=== PATIENT | female | born 1990 ===

== ENCOUNTER 2025-05-27 18:01 | Outpatient (REF) | payer MEDICAID, SELFPAY ==
[2025-05-29 17:03] LABS: C. trachomatis RNA TMA NOT DETECTED (NOT DETECTED); N. gonorrhoeae RNA TMA NOT DETECTED (NOT DETECTED)
[2025-05-30 02:48] LABS: Trichomonas (NAAT) NOT DETECTED (NOT DETECTED)
== END 2025-05-27 18:02 | disposition home or self-care (01) ==
LOC: HO.CHCLNP 18:01
PROVIDERS: Visit Provider Family Medicine
DX: Z12.4 Encounter for screening for malignant neoplasm of cervix (principal)
CPT/HCPCS: 87491; 87591; 87626; 87661; 88175

== ENCOUNTER 2025-06-11 09:09 | Outpatient (REF) | payer MEDICAID, SELFPAY ==
--- OUTSIDE RECORDS SUMMARY | 2025-06-11 09:26 | XMS_ITS | Clinical Summary ---
Author Organization [employer] Address [address] [place] [address] Care Team Providers Care Horse Shoer Name Role Phone Alla Knight MD Primary Care Provider [phone] Allergies No known active allergies Medications clonazePAM (KlonoPIN) 0.5 MG tablet Take 0.5 mg by mouth 2 times daily. Active metroNIDAZOLE (Flagyl) 500 MG tablet Take 1 tablet (500 mg) by mouth 2 times daily for 7 days. 14 tablet 06/03/2025 Active Problems Problem Noted Date Diagnosed Date Class 1 obesity 05/27/2025 Abnormal uterine bleeding 05/27/2025 Assessment & Plan (05/27/2025 11:33 AM EDT): Lab testing sent, f/up results Cervical cancer screening 05/27/2025 Assessment & Plan (05/27/2025 11:33 AM EDT): 35 y.o. here for cervical cancer screening. Will continue monitoring following ASCCP guidelines. Pain of both breasts 05/27/2025 Assessment & Plan (05/27/2025 11:33 AM EDT): Likely fibrocytic breast, given persistent pain and following CRICO guidelines will send for diagnostic mammo, f/up with results Encounters Date Type Department Care Team Description 06/03/2025 Results Follow-Up [facility] MED & PEDS [address] [place] [address] Colleen Roth MD STI testing add on (NG, CT, Trich), Pap Smear, HPV High Risk with Reflex to Subtypes 05/27/2025 10:20 AM EDT Procedure Visit [facility] MED & PEDS [address] [place] [address] Colleen Roth MD Cervical cancer screening (Primary Dx); Abnormal uterine bleeding; Class 1 obesity; Pain of both breasts; Screening examination for STD (sexually transmitted disease) 05/27/2025 Travel 05/21/2025 9:00 AM EDT Office Visit [facility] MED & PEDS [address] [place] [address] Alla Knight MD Depression, unspecified depression type (Primary Dx); Anxiety 05/21/2025 Travel 05/14/2025 Patient Outreach [facility] MEDICINE [address] [place] [address] Benito Campa Care Coordination ([facility] outreach for [facility] housing search-referral completed ) 05/14/2025 Patient Outreach [facility] MEDICINE [address] [place] [address] Ben Sheth MD Pre-visit Planning (SDOH screening positive and Tobacco screening positive) from Last 3 Months Family History Medical History Relation Name Comments Anxiety disorder Brother Depression Brother Heart disease Father Heart disease Mother Relation Name Status Comments Brother Alive Father Alive Mother Alive Social History Tobacco Use Types Packs/Day Years Used Date Smoking Tobacco: Every Day Cigarettes Passive Smoke Exposure: Current Smokeless Tobacco: Never Tobacco Cessation:Ready to Q uit: No; Counseling Given: Yes Alcohol Use Standard Drinks/Week Comments Yes 0 (1 standard drink = 0.6 oz pur e alcohol) Social Depression Answer Date Recorded Patient Health Questionnaire-9 Score 22 05/21/2025 Patient Health Questionnaire-9 Score 22 05/21/2025 Last PHQ-9: Questionnaire Data Not on file 0 05/21/2025 Housing Stability Answer Date Recorded What is your housing situation today? I do not have housing (Staying with others, in a hotel, in a custodial, living outside on the street, on a beach, in a car, or in a park 05/14/[address] you li ve. Do you have problems with any of the following? None of the above 05/14/2025 Food Insecurity Answer Date Recorded Within the past 12 months, y ou worried that your food would run out before you got money to buy more: Never True 05/14/2025 Within the past 12 months,th e food you bought just didn't last and you didn't have enough money to get more: Never True Transportation Answer Date Recorded In the past 12 months, has l ack of transportation kept you from medical appts, meetings, work or from getting things needed for daily living? No 05/14/2025 Utilities Answer Date Recorded In the past 12 months, has t he electric, gas, oil or water company threatened to shut off services in your home? No 05/14/2025 Depression Answer Date Recorded Patient Health Questionnaire-2 Score 6 05/21/2025 Internet Access Answer Date Recorded Internet Access Q1 Yes 05/14/2025 Internet Access Q2 Not on file 05/14/2025 Comments Unknown Sex and Gender Information Value Date Recorded Sex Assigned at Female 05/19/2025 3:12 PM EDT Legal Sex Female 1:30 PM EDT Gender Identity Female 05/19/2025 3:12 PM EDT Sexual Orientation Straight 05/19/2025 3: 12 PM EDT Last Filed Vital Signs Vital Sign Reading Time Taken Comments Blood Pressure 98/62 05/27/2025 10:19 AM EDT Pulse 92 05/27/2025 10:19 AM EDT Temperature 36.6 C (97.8 F) 05/27/2025 10:19 AM EDT Respiratory Rate 20 05/27/2025 10:19 AM EDT Oxygen Saturation 98% 05/21/2025 8:53 AM EDT Inhaled Oxygen Concentration - - Weight 75.3 kg (166 lb) 05/27/2025 10:19 AM EDT Height 154.9 cm (5' 1 ) 05/27/2025 10:19 AM EDT Body Mass Index 31.37 05/27/2025 10:19 AM EDT Plan of Treatment Upcoming Encounters Date Type Department Care Team ([facility] st Contact Info) Description 06/18/2025 8:45 AM EDT Telemedicine [facility] MED & PEDS [address] [place] [address] Alla Knight MD [address] [place] [address] Health Maintenance Due Date Last Done Comments HIV Screening 1990 Lipid Panel 1989 Disability Screening 1989 Alcohol/Substance Use Screening 2001 Family Planning (PISQ) 2004 HPV Vaccines (1 - 3-dose series) 2004 Hepatitis C Screening 2007 DTaP/Tdap/Td Vaccines (1 - Tdap) 2008 Hepatitis B Vaccines (1 of 3 - 19+ 3-dose series) 2008 Pneumococcal Vaccine: Pediatrics (0 to 5 Years) and At-Risk Patients (6 to 49) Years (1 of 2 - PCV) 2008 COVID-19 Vaccine ( - 2023-2 5 season) 2024 Influenza Vaccine (#1) 2025 Depression Monitoring 11/20/2025 05/21/2025 , 05/21/2025 SDOH Screening 05/14/2026 05/14/2025 Tobacco Screening 05/27/2026 05/27/2025 Pap Smear 05/27/2028 05/27/2025 Cervical Cancer Screening 05/27/2030 HPV/Cotest 05/27/2030 05/27/2025 Zoster Vaccines (1 of 2) 2039 RSV Patients and Patients Aged 60 years or older (1 - 1-dose 75+ series) 2064 HIB Vaccines Aged Out No longer eligi ble based on patient's age to complete this topic Hepatitis A Vaccines Aged Out No long er eligible based on patient's age to complete this topic IPV Vaccines Aged Out No longer eligi ble based on patient's age to complete this topic Meningococcal B Vaccine Aged Out No l onger eligible based on patient's age to complete this topic Meningococcal Vaccine Aged Out No marty orly eligible based on patient's age to complete this topic RSV under 20 months Aged Out No longe r eligible based on patient's age to complete this topic Rotavirus Vaccines Aged Out No longer eligible based on patient's age to complete this topic Procedures Procedure Name Priority Date/Time Associated Diagnosis Comments PAP SMEAR Routine 05/27/2025 11:02 AM EDT Cervical cancer screening CHLAMYDIA/N. GONORRHOEAE AND T. VAGINALIS RNA, QUAL,TMA Routine 05/27/2025 11:02 AM EDT Cervical cancer screening HPV DNA, LOW/HIGH RISK Routine 05/27/2025 11:02 AM EDT Cervical cancer screening from Last 3 Months Results * STI testing add on (NG, CT, Trich) (05/27/2025 11:02 AM EDT) Trichomonas (NAAT) NOT DETECTED NOT DETECTED [facility] Comment:The analytical perfo rmance characteristics of thisassay have been determined by [employer]. Themodifications have not been cleared or approved bythe FDA. This assay has been validated pursuant to theCLIA regulations and is used for clinical purposes.For additional information, please refer tohttp://education.[employer]/faq/Trichomonastma(This link is being provided for information/educational purposes only.)THIS TEST WAS PERFORMED AT:[employer] [place] [phone] JARA MD CTNG Ref Lab NOT DETECTED NOT DETECTED [facility] NG Ref Lab NOT DETECTED NOT DETECTED [facility] ThinPrep vial Cervix uteri structure / Unknown 05/27/2025 11:02 AM EDT 05/28/2025 8:25 AM EDT Narrative [facility] - 05/30/2025 2:48 AM EDT Collection Date: [id number] by: KENNEY Crooks: Cervix us Colleen Roth MD LAB CYTOLOGY ORDERABLES Final Result [facility] [address] [place], [place] [phone] * HPV High Risk with Reflex to Subtypes (05/27/2025 11:02 AM EDT) HPV High Risk Negative Negative [facility] HPV Genotype 16 Negative Negative [facility] HPV Genotype 18 Negative Negative [facility] Comment:HPV testing performe d at [facility] (CLIA#[id number]), [address] [place] [phone].Testing for HPV was performed using the [employer] 6800system. The presence of HPV in the female genital tract isassociated with a number of diseases, including cervicalcarcinoma. The HPV DNA high risk pool tests for HPV 31, 33,35, 39, 45, 51, 52, 56, 58, 59, 66 and 68. The testing forHPV 16 and 18 genotypes has also been performed. A positiveresult indicates detection of nucleic acid sequences fromone or more subtypes, whereas a negative result indicatessuch sequences were not detected. Swab 05/27/2025 11:0 2 AM EDT 05/28/2025 8:25 AM EDT us Colleen Roth MD LAB BLOOD ORDERABLES Final Re sult [facility] [address] [place] [phone] * Pap Smear (05/27/2025 11:02 AM EDT) Swab 05/27/2025 11:0 2 AM EDT 05/28/2025 8:25 AM EDT Alexander [facility] - 06/02/2025 3:02 PM EDT ----- ------- Name: Chelsea Durand Age/Sex: 35/F : 1990 Unit#: [id number] Attend Dr: Colleen Roth MD Re05/27/25 Status: DEP REF Location: .CHCLNP Disch: ----- ------- SPEC : [id number] RECD: 05/28/25 STATUS: JENNIFER LUND NUM: [id number] JOSSIE: 05/27/[address] [facility] DR: Colleen Roth MD ENTERED: 05/28/25 SP TYPE: Pap Smr OT DR: ORDERED: Pap Smear Interpretation Satisfactory for evaluation. Negative for intraepithelial lesion or malignancy. Coccobacilli consistent with shift in vaginal lynda. Mild inflammation. HPV High Risk: Negative HPV Genotyping 16: Negative HPV Genotyping 18: Negative Clinical Information LMP: 03/27/2025 Previous PAP test: Unknown date/findings Material Received ThinPrep-Cervical PAP Disclaimer As of September 18, 2024, the technical services to include automated prescreening performed by the ThinPrep Imaging System, PAP screening and HPV testing will be performed at [facility] (CLIA #[id number]), [address] [place] [address]. Testing for HPV was performed using the [employer] 6800 system. The presence of HPV in the female genital tract is associated with a number of diseases, including cervical carcinoma. The HPV DNA high risk pool tests for HPV 31, 33, 35, 39, 45, 51, 52, 56, 58, 59, 66 and 68. The testing for HPV 16 and 18 genotypes has also been performed. A positive result indicates detection of nucleic acid sequences from one or more subtypes, whereas a negative result indicates such sequences were not detected. All professional services are performed by [facility] ([address] [place] [address], [place] [address]; ; CLIA #[id number]). The PAP Test is a screening procedure with the inherent possibility of both false negative and false positive results. Results should be interpreted in the context of historic and current clinical findings. Reliability of the PAP Test is enhanced by performing the test on a regular repetitive basis. CONTINUED ON NEXT PAGE ----- ------- Name: Chelsea Durand Age/Sex: 35/F : 1990 Unit#: [id number] Attend Dr: Colleen Roth MD Re05/27/25 Status: DEP REF Location: HO.CHCLNP Disch: ----- ------- SPEC : [id number] RECD: 05/28/25 STATUS: AMARAArely LUND NUM: [id number] JOSSIE: 05/27/25-1101 [facility] DR: Colleen Roth MD ENTERED: 05/28/25 SP TYPE: Rigoberto MONTEZ DR: ORDERED: Pap Smear ----- ------- Signed (signature on file) CHRISSIE Monzon ([facility]) 06/02/25 1500 ----- ------- END OF REPORT us Colleen Roth MD LAB CYTOLOGY ORDERABLES Final Result [facility] [address] [place] [phone] [phone] from Last 3 Months Insurance [employer] C3 Care Teams Horse Shoer Relationship Specialty Start Date End Date Alla Knight MD [address] [place] [address] PCP - General Family Medicine 05/21/25
[2025-06-11 10:11] LABS: MANUAL DIFF FLAG NO
[2025-06-11 10:31] LABS: Hematocrit 39.5 % (37.0-47.0); Hemoglobin 13.4 g/dl (12.0-16.0); Imm Gran Abs Auto 0.02 X10*3/uL (0.00-0.03); Imm Gran Pct Auto 0.3 % (0.0-0.4); Lymphocytes Absolute Auto 2.2 X10*3/uL (1.2-4.9); Mean Corpuscular HGB Conc 33.9 g/dl (31.0-35.0); Mean Corpuscular Hemoglobin 32.5 pg (27.0-33.0); Mean Corpuscular Volume 95.9 fL (80.0-98.0); NRBC Abs Auto 0.000 X10*3/uL (0.0-0.012); NRBC Pct Auto 0.0 /100WBC (0.0-0.2); Platelet Count 302 X10*3/uL (160-400); Red Blood Count 4.12 X10*6/uL (4.20-5.50); White Blood Count 6.0 X10*3/uL (4.8-10.8)
[2025-06-11 11:13] LABS: Alanine Aminotransferase 26 U/L (0-31); Albumin Level 4.5 g/dL (3.5-5.0); Alkaline Phosphatase 66 U/L (39-117); Anion Gap 11 (12-20); Aspartate Amino Transferase 25 U/L (5-31); Blood Urea Nitrogen 20 mg/dL (9-16); Calcium 8.8 mg/dL (8.4-10.2); Carbon Dioxide 25 mmol/L (22-29); Chloride 111 mmol/L (96-108); Cholesterol 200 mg/dL (<200); Estimated Glomerular Filt Rate > 60; HDL Cholesterol 45 mg/dL (>40); Potassium 3.8 mmol/L (3.3-5.1); Sodium 143 mmol/L (135-145); Total Protein 7.2 g/dL (6.5-8.0); Triglycerides 131 mg/dL (<150)
[2025-06-11 11:16] LABS: HIV Num 1 0.05 S/CO (0.00-0.99); ~HepC Num1 0.10 S/CO (0.00-0.79); ~Hepatitis C Antibody Nonreactive (Nonreactive)
[2025-06-12 05:18] LABS: Follicle Stimulating Hormone 82.5 mIU/mL
[2025-06-14 22:03] LABS: Anti-Mullerian Hormone-Female 0.00 ng/mL (0.18-5.68)
[2025-06-16 21:54] LABS: Immunoglobulin A 247 mg/dL (47-310)
[2025-06-19 00:54] LABS: Estradiol Ultra Sensitive 3 pg/mL
== END 2025-06-11 09:10 | disposition home or self-care (01) ==
LOC: HO.CHCLDS 09:09
PROVIDERS: PCP Student in an Organized Health Care Education/Training Program; Visit Provider Family Medicine
DX: Z11.4 Encounter for screening for human immunodeficiency virus [HIV] (principal); Z11.59 Encounter for screening for other viral diseases; Z11.3 Encounter for screening for infections with a predominantly sexual mode of transmission; E66.811 Obesity, class 1; N93.9 Abnormal uterine and vaginal bleeding, unspecified
CPT/HCPCS: 36415; 80053; 80061; 82166; 82670; 82784; 83001; 84146; 84443; 84702; 85025; 86364; 86592; 86803; 87389

== ENCOUNTER 2025-06-17 15:13 | Outpatient (REF) | payer MEDICAID, SELFPAY ==
--- NOTE | ~2025-06-17 | US_ITS ---
EXAMINATION: US PELVIS CLINICAL INFORMATION: Abnormal uterine bleeding COMPARISON: None available. TECHNIQUE: Ultrasound of the pelvis is performed using both transabdominal and transvaginal transducers along with Doppler. Transvaginal imaging is performed due to inadequate visualization transabdominally. FINDINGS: Uterus: The uterus is anteflexed and measures 6.6 x 6.5 x 2.5 cm. The double wall endometrial thickness is 2 mm. The uterus is smooth in contour and has normal myometrial echogenicity. No visible fibroid. Adnexa: Both ovaries are visualized. There is normal color flow to the adnexa. There is no ovarian torsion. There is no pelvic ascites or fluid collection. Right ovary measures 1.4 x 1.8 x 1.1 cm. Left ovary measures 1.4 x 1.7 x 1.3 cm. US/US pelvic and transvaginal IMPRESSION: Unremarkable pelvic ultrasound Electronically signed by: Pepito Valadez MD 06/17/2025 04:13 PM EDT
--- OUTSIDE RECORDS SUMMARY | 2025-06-17 16:13 | XMS_ITS | Encounter Summary ---
Author Organization [employer] Address [address] [place] [address] Care Team Providers Care Photographer Still Name Role Phone Alla Knight MD Primary Care Provider [phone] Encounter Details Date Type Department Care Team (Latest Contact Info) Description 06/17/2025 Travel Social History Tobacco Use Types Packs/Day Years Used Date Smoking Tobacco: Every Day Cigarettes Passive Smoke Exposure: Current Smokeless Tobacco: Never Alcohol Use Standard Drinks/Week Comments Yes 0 [...] with others, in a hotel, in a senior living, living outside on the street, on a [...] Orientation Straight 05/19/2025 3: 12 PM EDT documented as of this encounter Plan of Treatment Upcoming Encounters Date Type Department Care Team (Late st Contact Info) Description 06/18/2025 8:45 AM EDT Telemedicine [facility] MED & PEDS [address] [place] [address] Alla Knight MD [address] [place] [address] documented as of this encounter Visit Diagnoses Not on filedocumented in this encounter Additional Health Concerns Assessment Noted Time PHQ-9 Depression Total Score: 22 025 9:11 AM EDT documented as of this encounter Care Teams Photographer Still Relationship Specialty Start Date End Date Alla Knight MD [address] [place] [address] PCP - General Family Medicine 05/21/25 documented as of this encounter
== END 2025-06-17 15:14 | disposition home or self-care (01) ==
LOC: HO.US 15:13
PROVIDERS: PCP Student in an Organized Health Care Education/Training Program; Visit Provider Family Medicine
DX: N93.9 Abnormal uterine and vaginal bleeding, unspecified (principal)
CPT/HCPCS: 76830; 76856

== ENCOUNTER → 2025-06-17 15:14 | Outpatient (BNV) | payer MEDICAID, SELFPAY | PROVIDERS: PCP Student in an Organized Health Care Education/Training Program; Visit Provider Radiology Diagnostic Radiology | DX: N93.9 Abnormal uterine and vaginal bleeding, unspecified (principal) | CPT/HCPCS: 76830; 76856 ==

== ENCOUNTER 2025-06-20 09:14 | Outpatient (REF) | payer MEDICAID, SELFPAY ==
--- OUTSIDE RECORDS SUMMARY | 2025-06-20 09:30 | XMS_ITS | Encounter Summary ---
Author Organization [employer] Address [address] [place] [address] Care Team Providers Care Surgical Scrub Tech Name Role Phone Alla Knight MD Primary Care Provider [phone] Encounter Details Date Type Department Care Team [...] with others, in a hotel, in a alf, living outside on the street, on a [...] Care Team (Late st Contact Info) Description 06/26/2025 10:00 AM EDT Office Visit [facility] MEDICINE [address] [place] [address] La Walton CNM [address] [place] [address] 07/23/2025 8:45 AM EDT Telemedicine [facility] MED & PEDS [address] [place] [address] Alla Knight MD [address] [place] [address] documented as of this encounter Visit Diagnoses Not on filedocumented in this encounter Additional Health Concerns Assessment Noted Time PHQ-9 Depression Total Score: 22 025 9:11 AM EDT documented as of this encounter Care Teams Surgical Scrub Tech Relationship Specialty Start Date End Date Alla Knight MD [address] [place] [address] PCP - General Family Medicine 05/21/25 documented as of this encounter
[2025-06-21 08:28] LABS: Follicle Stimulating Hormone 78.8 mIU/mL
[2025-06-26 11:04] LABS: Testosterone, Free 3.8 pg/mL (0.1-6.4)
[2025-06-30 05:13] LABS: Estradiol Ultra Sensitive 6 pg/mL
== END 2025-06-20 09:15 | disposition home or self-care (01) ==
LOC: HO.CHCLDS 09:14
PROVIDERS: Visit Provider Family Medicine
DX: N93.9 Abnormal uterine and vaginal bleeding, unspecified (principal)
CPT/HCPCS: 36415; 82670; 83001; 83002; 84402; 84403

== ENCOUNTER 2025-07-02 11:04 | Outpatient (REF) | payer MEDICAID, SELFPAY | END 2025-07-02 11:05 | disposition home or self-care (01) | LOC: HO.HHCL 11:04 | PROVIDERS: PCP Student in an Organized Health Care Education/Training Program; Visit Provider Advanced Practice Midwife | DX: E28.39 Other primary ovarian failure (principal) | CPT/HCPCS: 36415; 84702 ==

== ENCOUNTER 2025-07-31 12:19 | Outpatient (REF) | payer MEDICAID, SELFPAY ==
--- NOTE | ~2025-07-31 | MM_ITS ---
EXAMINATION: MM DIAGNOSTIC DIGITAL BREAST TOMOSYNTHESIS, BILATERAL Bilateral Limited breast ultrasound. CLINICAL INFORMATION: Bilateral breast pain. COMPARISON: Mammography: Baseline. TECHNIQUE: Digital breast mammography with tomosynthesis is performed in both the craniocaudal and mediolateral oblique views along with computer-aided detection (CAD). FINDINGS: There are scattered areas of fibroglandular density (ACR BI-RADS breast composition Category b). Left: Focal asymmetry upper outer breast posterior depth. Focal asymmetry upper outer breast middle depth. No suspicious calcifications or other abnormal findings. Targeted color Doppler ultrasound demonstrates a hypoechoic oval circumscribed solid mass at 10:00 11 cm from the nipple measuring 7 x 10 x 3 mm not identified correlate for the focal asymmetry in the upper central breast posterior depth. Targeted color Doppler ultrasound otherwise scanning from 10 2:00 demonstrates normal fibroglandular breast tissue. There is no other sonographic correlate. Right: Circumscribed oval mass central outer breast middle to posterior depth. No suspicious calcifications or other abnormal findings. Targeted color Doppler ultrasound demonstrates a simple cyst at 9:00 8 cm from the nipple measuring 4 x 4 x 3 mm which correlates with the circumscribed oval mass in the central outer breast on mammography. Results are provided to the patient at time of visit by the technologist. MM/MM tomosynthesis diagnostic BI IMPRESSION: Left: Focal asymmetry in the upper central breast posterior depth and upper central breast middle depth without definite sonographic correlates. Recommend six-month follow-up mammography for further evaluation of stability. Hypoechoic circumscribed oval mass at 10:00 11 cm from the nipple. Recommend 6 month follow-up ultrasound for further evaluation of stability. Right: Simple cyst on ultrasound. Benign. ASSESSMENT: BI-RADS BI-RADS 3 - Probably benign finding(s) - 6 month follow-up suggested RECOMMENDATION: 6 Month F/U mammogram and ultrasound of the left breast This patient's information was entered into a reminder system with a target due date for their next mammogram. Electronically signed by: Ashanti Yousif DO 07/31/2025 02:38 PM EDT
--- OUTSIDE RECORDS SUMMARY | 2025-07-31 13:43 | XMS_ITS | Encounter Summary ---
Author Organization [employer] Address [address] [place] [address] Care Team Providers Care Estimator Project Manager Name Role Phone Alla Knight MD Primary Care Provider [phone] Encounter Details Date Type Department Care Team (Latest Contact Info) Description 07/02/2025 Results Follow-Up [facility] MEDICINE [address] [place] [address] La Walton CNM [address] [place] [address] hCG, Total, Quantitative Social History Tobacco Use Types Packs/Day Years Used Date Smoking Tobacco: Every Day Cigarettes Passive Smoke Exposure: Current Smokeless Tobacco: Never Alcohol Use Standard Drinks/Week Comments Yes 0 (1 standard drink = 0.6 oz pur e alcohol) Social Alcohol Answer Date Recorded How often do you have a drink containing alcohol ? 3 07/02/2025 How many drinks containing a lcohol do you have on a typical day when you are drinking? 0 07/02/2025 Frequency of Binge Drinking Not on file 04/2025 Depression Answer Date Recorded Patient Health Questionnaire-9 Score 22 05/21/2025 Patient Health Questionnaire-9 Score 22 05/21/2025 Last PHQ-9: Questionnaire Data Not on file 0 05/21/2025 Housing Stability Answer Date Recorded What is your housing situation today? I do not have housing (Staying with others, in a hotel, in a fdc, living outside on the street, on a [...] Access Q2 Not on file 05/14/2025 Comments No Sex and Gender Information Value Date Recorded Sex Assigned at Female 05/19/2025 3:12 PM EDT Legal Sex Female 1:30 PM EDT Gender Identity Female 05/19/2025 3:12 PM EDT Sexual Orientation Straight 05/19/2025 3: 12 PM EDT documented as of this encounter Functional Status * Over the last 2 weeks, how often have you been bothered by any of the following problems? Question Answer Date of Assessment Author Feeling nervous, anxious, or on edge 3 07/02/2025 10:32 AM EDT Karon Izquierdo [place] Not being able to stop or co ntrol worrying 3 07/02/2025 10:32 AM EDT Karon Izquierdo MA Worrying too much about diff erent things 3 07/02/2025 10:32 AM EDT Karon Izquierdo MA Trouble relaxing 3 07/02/2025 10:32 AM EDT Karon Izquierdo MA Being so restless that it is hard to sit still 3 07/02/2025 10:32 AM EDT Karon Izquierdo MA Becoming easily annoyed or irritable 3 07/02/2025 10:32 AM EDT Karon Izquierdo MA Feeling afraid as if somethi ng awful might happen 2 07/02/2025 10:32 AM EDT Karon Izquierdo MA MARVIN-7 Total Score 20 07/02/2025 10:32 AM EDT Karon Izquierdo [place] documented as of this encounter Plan of Treatment Upcoming Encounters Date Type Department Care Team (Late st Contact Info) Description 09/04/2025 3:45 PM EDT Office Visit [facility] MEDICINE [address] [place] [address] La Walton CNM [address] [place] [address] documented as of this encounter Visit Diagnoses Not on filedocumented in this encounter Additional Health Concerns Assessment Noted Time PHQ-9 Depression Total Score: 22 025 9:11 AM EDT documented as of this encounter Care Teams Estimator Project Manager Relationship Specialty Start Date End Date Alla Knight MD [address] [place] [address] PCP - General Family Medicine 05/21/25 documented as of this encounter
--- OUTSIDE RECORDS SUMMARY | 2025-07-31 13:43 | XMS_ITS | Clinical Summary ---
Author Organization [employer] Address [address] [place] [address] Care Team Providers Care Retail Merchandiser Technician Name Role Phone Alla Knight MD Primary Care Provider [phone] Allergies No known active allergies Medications clonazePAM (KlonoPIN) 0.5 MG tablet Take 0.5 mg by mouth 2 times daily. Active sertraline (Zoloft) 25 MG tablet Take 2 tablets by mouth Once per day. 5 Active estradiol (Climara) 0.1 MG/24HR Place 1 patch on the skin 1 (one) time per week. 4 patch 2 5 Active progesterone (Prometrium) 200 MG capsule 1 tablet daily for 12 days, starting on the first of the month 30 capsule 2 5 Active FLUoxetine (PROzac) 10 MG tablet Take 1 tablet (10 mg) by mouth Once per day. 30 tablet 5 025 Discontinued omeprazole OTC (PriLOSEC OTC) 20 MG EC tablet Take 1 tablet (20 mg) by mouth before breakfast. Do not crush, chew, or split. 30 tablet 11 5 025 Discontinued Active Problems Problem Noted Date Diagnosed Date [...] Encounters Date Type Department Care Team Description 07/23/2025 Telephone [facility] [address] [place] [address] Alla Knight MD TC- telehealth appt 07/23/2025 Travel 07/22/2025 Telephone [facility] [address] [place] [address] Alla Knight MD 07/02/2025 10:00 AM EDT Office Visit [address] [address] La Walton CNM Primary ovarian insufficiency (Primary Dx); Irregular menses 07/02/2025 Results Follow-Up [address] [address] La Walton CNM hCG, Total, Quantitative 07/02/2025 Travel 07/01/[address] [address] La Walton CNM chart prep 06/25/[address] [address] La Walton CNM chart prep 06/25/2025 Travel 06/18/2025 8:45 AM EDT Telemedicine [facility] [address] [place] [address] Alla Knight MD Depression, unspecified depression type (Primary Dx); Anxiety 06/18/2025 Travel 06/17/2025 Travel 06/03/2025 Results Follow-Up [facility] [address] [place] [address] Colleen Roth MD STI testing add on (NG, CT, Trich), Pap Smear, HPV High Risk with Reflex to Subtypes, Additional followed-up results: 17 05/27/2025 10:20 AM EDT Procedure Visit [facility] [address] [place] [address] Colleen Roth MD Cervical cancer screening (Primary Dx); Abnormal uterine bleeding; Class 1 obesity; Pain of both breasts; Screening examination for STD (sexually transmitted disease) 05/27/2025 Travel 05/21/2025 9:00 AM EDT Office Visit [facility] [address] [place] [address] Alla Knight MD Depression, unspecified depression type (Primary Dx); Anxiety 05/21/2025 Travel 05/14/2025 Patient Outreach [facility] [address] [place] [phone] Benito Campa Care Coordination (CHW outreach for SDOH housing search-referral completed ) 05/14/2025 Patient Outreach [facility] [address] [place] [phone] Ben Sheth MD Pre-visit Planning (SDOH screening [...] Tobacco: Never Tobacco Cessation:Ready to Q uit: Not Asked; Counseling Given: Not Answered Alcohol Use Standard Drinks/Week Comments Yes 0 [...] Q2 Not on file 05/14/2025 Comments No Intention Date Recorded No desire to become (finding) 0 07/02/2025 Sex and Gender Information Value Date Recorded Sex Assigned at Female 05/19/2025 3:12 PM EDT Legal Sex Female 1:30 PM EDT Gender Identity Female 05/19/2025 3:12 PM EDT Sexual Orientation Straight 05/19/2025 3: 12 PM EDT Last Filed Vital Signs Vital Sign Reading Time Taken Comments Blood Pressure 120/74 07/02/2025 10:27 AM EDT Pulse 81 07/02/2025 10:27 AM EDT Temperature 36.6 C (97.9 F) 07/02/2025 10:27 AM EDT Respiratory Rate 14 07/02/2025 10:27 AM EDT Oxygen Saturation 99% 07/02/2025 10:27 AM EDT Inhaled Oxygen Concentration - - Weight 73.9 kg (163 lb) 07/02/2025 10:27 AM EDT Height 154.9 cm (5' 1 ) 05/27/2025 10:19 AM EDT Body Mass Index 30.8 05/27/2025 10:19 AM EDT Plan of Treatment Upcoming Encounters Date Type Department Care Team (Late st Contact Info) Description 09/04/2025 3:45 PM EDT Office Visit [facility] [address] [place] [address] DionytheronLa razo, CNM [address], [place] [phone] Health Maintenance Due Date Last Done Comments HPV Vaccines (1 - 3-dose series) 2004 DTaP/Tdap/Td Vaccines (1 - Tdap) 2008 Hepatitis B Vaccines (1 of 3 - 19+ 3-dose series) 2008 Pneumococcal Vaccine: Pediatrics (0 to 5 Years) and At-Risk Patients (6 to 49) Years (1 of 2 - PCV) 2008 COVID-19 Vaccine (2023-2 5 season) 2025 Influenza Vaccine (#1) 2025 Depression Monitoring 11/20/2025 05/21/2025 , 05/21/2025 SDOH Screening 05/14/2026 05/14/2025 Alcohol/Substance Use Screening 07/02/2026 07/02/2025 Disability Screening 07/02/2026 07/02/2025 Family Planning (PISQ) 07/02/2026 07/02/2025 Tobacco Screening 07/02/2026 07/02/2025 Cervical Cancer Screening 05/27/2030 HPV/Cotest 05/27/2030 05/27/2025 Pap Smear 05/27/2030 05/27/2025 Lipid Panel 06/11/2030 06/11/2025 Zoster Vaccines (1 of 2) 2039 RSV Patients and Patients Aged 60 years or older (1 - 1-dose 75+ series) 2064 HIV Screening Completed 06/11/2025 Hepatitis C Screening Completed 06/11/2025 HIB Vaccines Aged Out No longer eligi [...] Procedure Name Priority Date/Time Associated Diagnosis Comments HCG, TOTAL, QN Routine 07/02/2025 11:08 AM EDT Primary ovarian insufficiency POCT , URINE Routine 07/02/2025 10:59 AM EDT Irregular menses ESTRADIOL Routine 06/20/2025 9:20 AM EDT Abnormal uterine bleeding TESTOSTERONE, FREE (DIALYSIS) AND TOTAL,MS Routine 06/20/2025 9:20 AM EDT Abnormal uterine bleeding LH Routine 06/20/2025 9:20 AM EDT Abnormal uterine bleeding FSH Routine 06/20/2025 9:20 AM EDT Abnormal uterine bleeding US PELVIS TRANSVAGINAL Routine 06/17/2025 3:39 PM EDT Abnormal uterine bleeding CELIAC DISEASE COMPREHENSIVE PANEL Routine 06/11/2025 9:12 AM EDT Abnormal uterine bleeding TSH W/REFLEX TO FT4 Routine 06/11/2025 9 :12 AM EDT Abnormal uterine bleeding PROLACTIN Routine 06/11/2025 9:12 AM EDT Abnormal uterine bleeding HCG, TOTAL, QN Routine 06/11/2025 9:12 AM EDT Class 1 obesity RPR (MONITOR) W/REFL TITER Routine 06/11/2025 9:12 AM EDT Screening examination for STD (sexually transmitted disease) HEPATITIS C AB W/REFL TO HCV RNA, QN, PCR Routine 06/11/2025 9:12 AM EDT Screening examination for STD (sexually transmitted disease) HIV 1/2 ANTIGEN/ANTIBODY, FOURTH GENERATION W/RFL Routine 06/11/2025 9:12 AM EDT Screening examination for STD (sexually transmitted disease) ANTI-MULLERIAN HORMONE (AMH), FEMALE Routine 06/11/2025 9:12 AM EDT Abnormal uterine bleeding ESTRADIOL Routine 06/11/2025 9:12 AM EDT Abnormal uterine bleeding FSH Routine 06/11/2025 9:12 AM EDT Abnormal uterine bleeding COMPREHENSIVE METABOLIC PANEL Routine 06/11/2025 9:12 AM EDT Class 1 obesity CBC WITH AUTO DIFFERENTIAL Routine 06/11/2025 9:12 AM EDT Class 1 obesity LIPID PANEL, STANDARD Routine 06/11/2025 9:12 AM EDT Class 1 obesity PAP SMEAR Routine 05/27/2025 11:02 AM EDT Cervical cancer screening CHLAMYDIA/N. GONORRHOEAE AND T. VAGINALIS RNA, QUAL,TMA Routine 05/27/2025 11:02 AM EDT Cervical cancer screening HPV DNA, LOW/HIGH RISK Routine 05/27/2025 11:02 AM EDT Cervical cancer screening from Last 3 Months Results * hCG, Total, Quantitative (07/02/2025 11:08 AM EDT) Only the most recent of2 resultswithin the time period is included. HCG Quantitative 4 mIU/mL [facility] Comment:Weeks post LMP Appro ximate hCG(Last Menstrual Period) Range (mIU/ml)3 - 4 weeks 9 - 1304 - 5 weeks 75 - 2,6005 - 6 weeks 850 - 20,8006 - 7 weeks 4000 - 100,2007 - 12 weeks 11,500 - 289,11527 - 16 weeks 18,300 - 137,29115 - 29 weeks (2nd trimester) 1,400 - 53,11176 - 41 weeks (3rd trimester) 940 - 60,000The Paulino B- hCG assay is used for the early detection ofpregnancy; it cannot be used to diagnose any conditionunrelated to . If a B-hCG level is not supportedby the clinical evidence, results should be confirmed by analternative method (qualitative urine hCG, for example). Blood Venous blood specimen / Unknown 07/02/2025 11:08 AM EDT 07/02/2025 1:36 PM EDT [facility] BLOOD ORDERABLES Maria Fernanda l Result [facility] [address] [place] [address] [phone] * POCT Urine (07/02/2025 10:59 AM EDT) Preg Test, Ur Negative Negative, Indeterminate, None Detected, Invalid, Specimen unsatisfactory for evaluation, Weakly Positive, 2+ QC Media Lot # [id number] Lot# Expiration Date [id number] Urine 07/02/2025 10:5 9 AM EDT [facility] POINT OF CARE TEST ENTER/ EDIT ORDERABLES Final Result * Estradiol (06/20/2025 9:20 AM EDT) Only the most recent of2 resultswithin the time period is included. Estradiol Ultra Sensitive 6 pg/mL [facility] Comment:Female Reference Ran ges for Estradiol, Ultrasensitive (pg/mL): Follicular Phase: 39-375 Luteal Phase: 48-440 Postmenopausal Phase: < or = 10This test was developed and its analytical performancecharacteristics have been determined by [employer].It has not been cleared or approved by the FDA. This assayhas been validated pursuant to the CLIA regulations and isused for clinical purposes.THIS TEST WAS PERFORMED AT:[email or web address] [id number] [address] [place] [address]OHSZEANITHA MABRY MD,PHD,NIMCO Blood Venous blood specimen / Unknown 06/20/2025 9:20 AM EDT 06/20/2025 1:50 PM EDT us Colleen Roth MD LAB BLOOD ORDERABLES Final Re sult [facility] [address] [place] [phone] [phone] * Testosterone, Free (Dialysis) And Total, MS (06/20/2025 9:20 AM EDT) Testosterone, Total 23 2 - 45 ng/dL [facility] Comment:For additional infor matjolene, please refer tohttp://education.[employer]/faq/BmomaAchvlkkqwzkiZMQGBNQYV741(This link is being provided for informational/educational purposes only.)This test was developed and its analytical performancecharacteristics have been determined by [employer]. It hasnot been cleared or approved by the U.S. Food and DrugAdministration. This assay has been validated pursuantto the CLIA regulations and is used for clinicalpurposes. Testosterone, Free 3.8 0.1 - 6.4 pg/mL [facility] Comment:This test was develo ped and its analytical performancecharacteristics have been determined by [employer] [place]. It hasnot been cleared or approved by the U.S. Food and DrugAdministration. This assay has been validated pursuantto the CLIA regulations and is used for clinicalpurposes.THIS TEST WAS PERFORMED AT:[id number] [place] [address]YUYJODAJANAE LANIER MD,PHD Blood Venous blood specimen / Unknown 06/20/2025 9:20 AM EDT 06/20/2025 1:50 PM EDT Colleen Roth MD LAB BLOOD ORDERABLES Final Re sult Performing Organization Address [facility] Co de Phone Number [facility] [address] [place] [phone] * LH (06/20/2025 9:20 AM EDT) Lutenizing Hormone 61.7 mIU/mL [facility] Comment:Reference Range Foll icular Phase 1.9-12.5 Mid-Cycle Peak 8.7-76.3 Luteal Phase 0.5-16.9 Postmenopausal 10.0-54.7THIS TEST WAS PERFORMED AT:[email or web address] [address] [id number] JARA MD Blood Venous blood specimen / Unknown 06/20/2025 9:20 AM EDT 06/20/2025 1:50 PM EDT Colleen Roth MD LAB BLOOD ORDERABLES Final Re sult Performing Organization Address [facility] Co de Phone Number [facility] [address] [place] [phone] * FSH (06/20/2025 9:20 AM EDT) Only the most recent of2 resultswithin the time period is included. Follicle Stimulating Hormone 78.8 mIU/mL [facility] Comment:Reference Range Foll icular Phase 2.5-10.2 Mid-cycle Peak 3.1-17.7 Luteal Phase 1.5- 9.1 Postmenopausal 23.0-116.3THIS TEST WAS PERFORMED AT:[email or web address] [address] [id number] JARA MD Blood Venous blood specimen / Unknown 06/20/2025 9:20 AM EDT 06/20/2025 1:50 PM EDT Colleen Roth MD LAB BLOOD ORDERABLES Final Re sult [facility] [address] [place] [phone] * US Pelvis Transvaginal (06/17/2025 3:39 PM EDT) Anatomical Region Laterality Modality Pelvis Ultrasound 06/17/2025 3:39 PM EDT Narrative 06/17/2025 4:16 PM EDT [address] [address] Ultrasound Report Signed Patient: Chelsea Durand MR#: [id number] 60 : 1990 Acct:[id number] Age/Sex: 35 / F ADM Date: 06/17/25 Loc: HO.US Attending Dr: Colleen Roth MD Ordering Physician: Colleen Roth MD Date of Service: 06/17/25 Procedure(s): US pelvic and transvaginal Accession Number(s): [id number] cc: Alla Knight MD; Colleen Roth MD EXAMINATION: US PELVIS CLINICAL INFORMATION: Abnormal uterine bleeding COMPARISON: None available. TECHNIQUE: Ultrasound of the pelvis is performed using both transabdominal and transvaginal transducers along with Doppler. Transvaginal imaging is performed due to inadequate visualization transabdominally. FINDINGS: Uterus: The uterus is anteflexed and measures 6.6 x 6.5 x 2.5 cm. The double wall endometrial thickness is 2 mm. The uterus is smooth in contour and has normal myometrial echogenicity. No visible fibroid. Adnexa: Both ovaries are visualized. There is normal color flow to the adnexa. There is no ovarian torsion. There is no pelvic ascites or fluid collection. Right ovary measures 1.4 x 1.8 x 1.1 cm. Left ovary measures 1.4 x 1.7 x 1.3 cm. US/US pelvic and transvaginal IMPRESSION: Unremarkable pelvic ultrasound Electronically signed by: Pepito Valadez MD 06/17/2025 04:13 PM EDT Dictated By: ePpito Valadez MD Signed By: <Electronically signed by Pepito Valadez MD in OV> 06/17/25 1613 DD/ 1539 TD/TT: 06/17/25 1552 Log Check Scaler: Procedure Note Daisyter, Image - 06/17/2025 [place] [address] Ultrasound Report Signed Patient: Zora DurandR#: [id number] 60 : 1990Acct:[id number] Age/Sex: 35 / FADM Date: 06/17/25 Loc: .US Attending Dr: Colleen Roth MD Ordering Physician: Colleen Roth MD Date of Service: 06/17/25 Procedure(s): US pelvic and transvaginal Accession Number(s): [id number] cc: Alla Knight MD; Colleen Roth MD EXAMINATION: US PELVIS CLINICAL INFORMATION: Abnormal uterine bleeding COMPARISON: None available. TECHNIQUE: Ultrasound of the pelvis is performed using both transabdominal and transvaginal transducers along with Doppler. Transvaginal imaging is performed due to inadequate visualization transabdominally. FINDINGS: Uterus: The uterus is anteflexed and measures 6.6 x 6.5 x 2.5 cm. The double wall endometrial thickness is 2 mm. The uterus is smooth in contour and has normal myometrial echogenicity. No visible fibroid. Adnexa: Both ovaries are visualized. There is normal color flow to the adnexa. There is no ovarian torsion. There is no pelvic ascites or fluid collection. Right ovary measures 1.4 x 1.8 x 1.1 cm. Left ovary measures 1.4 x 1.7 x 1.3 cm. US/US pelvic and transvaginal IMPRESSION: Unremarkable pelvic ultrasound Electronically signed by: Pepito Valadez MD 06/17/2025 04:13 PM EDT Dictated By: Pepito Valadez MD Signed By: <Electronically signed by Pepito Valadez MD in OV> 06/17/25 1613 DD/ 1539 TD/TT: 06/17/25 1552 Log Check Scaler: us Colleen Roth MD IMG US PROCEDURES Final Resul t * TSH W/Reflex to FT4 (06/11/2025 9:12 AM EDT) Pathologist [facility] TSH reflex Free T4 1.10 0.32 - 4.0 uIU/mL [facility] Blood Venous blood specimen / Unknown 06/11/2025 9:12 AM EDT 06/11/2025 10:07 AM EDT us Colleen Roth MD LAB BLOOD ORDERABLES Final Re sult Performing Organization Address City/State/[facility] Co de Phone Number [facility] [address] [place] [phone] * (ABNORMAL) CBC auto differential (06/11/2025 9:12 AM EDT) Pathologist [facility] White Blood Count 6.0 4.8 - 10.8 X10*3/uL [facility] Red Blood Count 4.12(L) 4.20 - 5.50 X10*6/uL [facility] Hemoglobin 13.4 12.0 - 16.0 g/dl [facility] Hematocrit 39.5 37.0 - 47.0 % [facility] Mean Corpuscular Volume 95.9 80.0 - 98.0 fL [facility] Mean Corpuscular Hemoglobin 32.5 27.0 - 33.0 pg [facility] Mean Corpuscular HGB Conc 33.9 31.0 - 35.0 g/dl [facility] Red Cell Distribution Width 12.4 11.0 - 16.0 % [facility] Platelet Count 302 160 - 400 X10*3/uL [facility] Mean Platelet Volume 9.7 9.4 - 12.3 fL [facility] Neutrophils Percent Auto 54.6 45 - 73 % [facility] Imm Gran Pct Auto 0.3 0.0 - 0.4 % [facility] Lymphocytes Percent Auto 35.6 20 - 40 % [facility] Monocytes Percent Auto 7.3 2 - 11 % [facility] Eosinophils Percent Auto 1.7 0 - 4 % [facility] Basophils Percent Auto 0.5 0 - 2 % [facility] NRBC Pct Auto 0.0 0.0 - 0.2 /100WBC [facility] Neutrophils Absolute Auto 3.3 2.0 - 8.3 x10*3/uL [facility] Imm Gran Abs Auto 0.02 0.00 - 0.03 X10*3/uL [facility] Lymphocytes Absolute Auto 2.2 1.2 - 4.9 X10*3/uL [facility] Monocytes Absolute Auto 0.4 0.1 - 1.2 X10*3/uL [facility] Eosinophils Absolute Auto 0.1 0.0 - 0.4 X10*3/uL [facility] Basophils Absolute Auto 0.0 0.0 - 0.2 X10*3/uL [facility] NRBC Abs Auto 0.000 0.0 - 0.012 X10*3/uL [facility] Blood Venous blood specimen / Unknown 06/11/2025 9:12 AM EDT 06/11/2025 10:07 AM EDT us Colleen Roth MD LAB BLOOD ORDERABLES Final Re sult [facility] [address] [place] [phone] * Hepatitis C Antibody with Reflex to HCV, RNA, Quantitative, Real-Time PCR (06/11/2025 9:12 AM EDT) Hepatitis C Antibody Nonreactive Nonreactive [facility] Comment:Antibodies to HCV no t detected; does not exclude early acuteHCV infection. Blood Venous blood specimen / Unknown 06/11/2025 9:12 AM EDT 06/11/2025 10:07 AM EDT Colleen Roth MD LAB BLOOD ORDERABLES Final Re sult Performing Organization Address [facility]/ZIP Co de Phone Number [facility] [address] [place] [phone] * Celiac Disease Comprehensive Panel (06/11/2025 9:12 AM EDT) Immunoglobulin A, Qn, Serum 247 47 - 310 mg/dL [facility] Comment:THIS TEST WAS PERFOR MED AT:[email or web address] [address] [id number] JARA MD Transglutaminase IgA <1.0 U/mL [facility] Comment:Value Interpretation ----- <15.0 Antibody not detected> or = 15.0 Antibody detected Interpretation SEE NOTE [facility] Comment:No serological evide nce of celiac disease.tTG IgA may normalize in individuals with celiac diseasewho maintain a gluten-free diet. Consider HLA DQ2 andDQ8 testing to rule out celiac disease. Celiac diseaseis extremely rare in the absence of DQ2 or DQ8. Blood Venous blood specimen / Unknown 06/11/2025 9:12 AM EDT 06/11/2025 10:07 AM EDT us Colleen Roth MD LAB BLOOD ORDERABLES Final Re sult Performing Organization Address [facility]/ZIP Co de Phone Number [facility] [address] [place] [phone] * (ABNORMAL) Anti-Mullerian Hormone (AMH), Female (06/11/2025 9:12 AM EDT) Anti-Mullerian Hormone (AMH), Female 0.00(A) 0.18 - 5.68 ng/mL [facility] Comment:THIS TEST WAS PERFOR MED AT:[email or web address] [id number] [place] [address]EZBGWANITHA MABRY MD,PHD,NIMCO Blood Venous blood specimen / Unknown 06/11/2025 9:12 AM EDT 06/11/2025 10:07 AM EDT Colleen Roth MD LAB BLOOD ORDERABLES Final Re sult Performing Organization Address [facility]/ZIP Co de Phone Number [facility] [address] [place] [phone] * Prolactin (06/11/2025 9:12 AM EDT) Prolactin 9.0 ng/mL [facility] Comment:Reference Range Fema les Non- 3.0-30.0 10.0-209.0 Postmenopausal 2.0-20.0THIS TEST WAS PERFORMED AT:[email or web address] [place] [id number] JARA MD Blood Venous blood specimen / Unknown 06/11/2025 9:12 AM EDT 06/11/2025 10:07 AM EDT Colleen Roth MD LAB BLOOD ORDERABLES Final Re sult Performing Organization Address [facility] Co de Phone Number [facility] [address] [place] [phone] * RPR (Monitor) with Reflex to??Titer (06/11/2025 9:12 AM EDT) RPR (Monitor) w/Refl Titer NON-REACTI VE NON-REACT EALR [facility] Comment:THIS TEST WAS PERFOR MED AT:[email or web address] [place] [id number] JARA MD Rapid Plasma Reagin Ab Titer TNP [facility] Blood Venous blood specimen / Unknown 06/11/2025 9:12 AM EDT 06/11/2025 10:07 AM EDT Colleen Roth MD LAB BLOOD ORDERABLES Final Re sult Performing Organization Address [facility]/ZIP Co de Phone Number [facility] [address] [place] [phone] * HIV-1/2 Antigen and Antibodies, Fourth Generation, with Reflexes (06/11/2025 9:12 AM EDT) HIV AB/AG Nonreactive Nonreactive [facility] Comment:HIV-1 p24 Ag and/or HIV-1/HIV-2 Ab not detected.A test result that is nonreactive does not exclude thepossibility of exposure to or infection with HIV-1 and/orHIV-2. Nonreactive results in this assay for individualswith prior exposure to HIV-1 and/or HIV-2 may be due toantigen and antibody levels that are below the limit ofdetection of this assay.The [employer] HIV Ag/Ab Combo assay result andsupplemental assay results should be interpreted inconjunction with the patient's clinical presentation,history and other laboratory results. If the results areinconsistent with clinical evidence, additional testing issuggested to confirm the result. Blood Venous blood specimen / Unknown 06/11/2025 9:12 AM EDT 06/11/2025 10:07 AM EDT us Colleen Roth MD LAB BLOOD ORDERABLES Final Re sult Performing Organization Address [facility] Co de Phone Number [facility] [address] [place] [phone] * (ABNORMAL) Lipid Panel, Standard (06/11/2025 9:12 AM EDT) Triglycerides 131 <150 mg/dL [facility] Comment:Desirable Triglyceri de: less than 150 mg/dLBorderline High Triglyceride 150-199 mg/dLHigh Triglyceride: 200-499 mg/dLVery High Triglyceride: greater than or equal to 5OO mg/dL Cholesterol 200(H) <200 mg/dL [facility] Comment:Desirable Cholestero l: less than 200 mg/dLBorderline High Cholesterol: 200-239 mg/dLHigh Cholesterol: greater than 239 mg/dL LDL Cholesterol Calculated 129(H) <100 mg/dL [facility] Comment:Desirable LDL: less than 100 mg/dLNear Optimal/Above Optimal LDL: 110- 129 mg/dLBorderline High LDL: 130-159 mg/dLHigh LDL: 160-189 mg/dLVery High LDL: greater than or equal to 190 mg/dL HDL Cholesterol 45 >40 mg/dL [facility] Comment:Desirable HDL: great er than 40 mg/dL Note: This HDL assay may give artificially low results in patients with liver disease. Blood Venous blood specimen / Unknown 06/11/2025 9:12 AM EDT 06/11/2025 10:07 AM EDT us Colleen Roth MD LAB BLOOD ORDERABLES Final Re sult [facility] [address] [place] [phone] * (ABNORMAL) Comprehensive Metabolic Panel (06/11/2025 9:12 AM EDT) Sodium 143 135 - 145 mmol/L [facility] Potassium 3.8 3.3 - 5.1 mmol/L [facility] Chloride 111(H) 96 - 108 mmol/L [facility] Carbon Dioxide 25 22 - 29 mmol/L [facility] Anion Gap 11(L) 12 - 20 [facility] Urea Nitrogen (BUN) 20(H) 9 - 16 mg/dL [facility] Creatinine, Serum 0.82 0.5 - 1.4 mg/dL [facility] Estimated Glomerular Filt Rate >60 [facility] Comment:Chronic Kidney Disea se: Estimated GFR < 60 mL/min/1.16o2Wdmabt Kidney Disease: Estimated GFR < 15 mL/min/1.73m2 Glucose 100 60 - 115 mg/dL [facility] Calcium 8.8 8.4 - 10.2 mg/dL [facility] Bilirubin, Total 0.2 0.0 - 1.0 mg/dL [facility] Aspartate Amino Transferase 25 5 - 31 U/L [facility] Alanine Aminotransferase 26 0 - 31 U/L [facility] Total Protein 7.2 6.5 - 8.0 g/dL [facility] Albumin Level 4.5 3.5 - 5.0 g/dL [facility] Alkaline Phosphatase 66 39 - 117 U/L [facility] Blood Venous blood specimen / Unknown 06/11/2025 9:12 AM EDT 06/11/2025 10:07 AM EDT us Colleen Roth MD LAB BLOOD ORDERABLES Final Re sult [facility] [address] [place] [phone] * STI testing add on (NG, CT, Trich) (05/27/2025 11:02 AM EDT) Trichomonas (NAAT) NOT DETECTED NOT DETECTED [facility] Comment:The analytical perfo rmance characteristics of thisassay have been determined by [employer]. Themodifications have not been cleared or approved bythe FDA. This assay has been validated pursuant to theIA regulations and is used for clinical purposes.For additional information, please refer tohttp://education.[employer]/faq/Trichomonastma(This link is being provided for information/educational purposes only.)THIS TEST WAS PERFORMED AT:[email or web address] [place] [phone] JARA MD CTNG Ref Lab NOT DETECTED NOT DETECTED [facility] NG Ref Lab NOT DETECTED NOT DETECTED [facility] ThinPrep vial Cervix uteri structure / Unknown 05/27/2025 11:02 AM EDT 05/28/2025 8:25 AM EDT Narrative [facility] - 05/30/2025 2:48 AM EDT Collection Date: [id number] by: KENNEY LUSI-COLONSource: Cervix us Colleen Roth MD LAB CYTOLOGY ORDERABLES Final Result Performing Organization Address [facility] Co de Phone Number [facility] [address] [place] [phone] * HPV High Risk with Reflex to Subtypes (05/27/2025 11:02 AM EDT) HPV High Risk Negative Negative [facility] HPV Genotype 16 Negative Negative [facility] HPV Genotype 18 Negative Negative [facility] Comment:HPV testing performe d at [facility] (CLIA#[id number]), [address] [place] [id number].Testing for HPV was performed using the [employer] 6800system. The presence of HPV in [...] 2 AM EDT 05/28/2025 8:25 AM EDT Colleen Roth MD LAB BLOOD ORDERABLES Final Re sult Performing Organization Address [facility] Co de Phone Number [facility] [address] [place] [phone] * Pap Smear (05/27/2025 11:02 AM EDT) Swab 05/27/2025 11:0 2 AM EDT 05/28/2025 8:25 AM EDT Narrative [facility] - 06/02/2025 3:02 PM EDT ----- ------- Name: Chelsea Durand Age/Sex: 35/F : 1990 Unit#: [id number] Attend Dr: Colleen Roth MD Re05/27/25 Status: DEP REF Location: [facility] Disch: ----- ------- SPEC : [id number] RECD: 05/28/25 STATUS: JENNIFER KEVON NUM: [id number] JOSSIE: 05/27/25-[address] [facility] [address]: Colleen Roth MD ENTERED: 05/28/25 SP TYPE: Pap Smr OTHR : ORDERED: Pap Smear Interpretation Satisfactory for evaluation. [...] and HPV testing will be performed at [facility] (CLIA #[id number]), [address] [place] [address]. Testing for HPV was performed using the [employer] BILL[employer] 6800 system. The presence of HPV [...] detected. All professional services are performed by [facility] ([address] [place], [place] [id number]; ; CLIA #[id number]). The PAP Test is a screening procedure with the inherent possibility of both false negative and false positive results. Results should be interpreted in the context of historic and current clinical findings. Reliability of the PAP Test is enhanced by performing the test on a regular repetitive basis. CONTINUED ON NEXT PAGE ----- ------- Name: Chelsea Durand Age/Sex: 35/F : 1990 Unit#: [id number] Attend Dr: Colleen Roth MD Re05/27/25 Status: [facility] ----- ------- SPEC : [id number] RECD: 05/28/25 STATUS: JENNIFER LUND NUM: [id number] JOSSIE: 05/27/25-[address] [facility] [address]: Colleen Roth MD ENTERED: 05/28/25 SP TYPE: Pap Smr TC DR: ORDERED: Pap Smear ----- ------- Signed (signature on file) CHRISSIE Monzon ([facility]) 06/02/25 1502 ----- ------- END OF REPORT Colleen Roth MD LAB CYTOLOGY ORDERABLES Final Result [facility] [address] [place] [phone] from Last 3 Months Insurance [employer] C[employer] Care Teams Retail Merchandiser Technician Relationship Specialty Start Date End Date Alla Knight MD [address] [place] [phone] PCP - General Family Medicine 05/21/25
== END 2025-07-31 12:20 | disposition home or self-care (01) ==
LOC: HO.MAMMO 12:19
PROVIDERS: PCP Family Medicine; Visit Provider Family Medicine
DX: N64.4 Mastodynia (principal)
CPT/HCPCS: 76642; 77062; 77066

== ENCOUNTER → 2025-07-31 12:30 | Outpatient (BNV) | payer MEDICAID, SELFPAY | PROVIDERS: PCP Family Medicine; Visit Provider Internal Medicine | DX: N64.4 Mastodynia (principal) | CPT/HCPCS: 76642; 77062; 77066 ==

== ENCOUNTER 2025-09-09 11:02 | Outpatient (REF) | payer MEDICAID, SELFPAY ==
--- OUTSIDE RECORDS SUMMARY | 2025-09-04 15:45 | XMS_ITS | Encounter Summary ---
Author Organization [employer] Address [address] [place] [address] Care Team Providers Care General Internal Medicine Physician Name Role Phone Alla Knight MD Primary Care Provider [phone] Reason for Referral * Consultation (Routine) - Pending Review Specialty Diagnoses / Procedures Referred By Ira blakely Referred To Contact Obstetrics and Gynecology Diagnoses Primary ovarian insufficiency La Walton CNM [address] [place] [address] Phone: tel: fax: Referral ID Status Reason Start Date Expiration Date Visits Requested Visits Authorized [id number] Pending Review Specialty Services Required 09/04/2025 09/04/2026 1 1 Scheduling Instructions Please schedule with Dr Jose Juan Anderson at [facility] . If he is unavailable, please let me know. Please send all lab testing from 05/2025 as well as pelvic ultrasound from 05/2025. Reason for Visit * Reason Comments f/u Encounter Details Date Type Department Care Team (Latest Contact Info) Description 09/04/2025 3:45 PM EDT Office Visit [facility] [address] [place] [phone] La Walton CNM [address], [place] [phone] Primary ovarian insufficiency (Primary Dx) Social History Tobacco Use Types Packs/Day Years [...] with others, in a [place], in [place], living outside on the street, on a [...] PM EDT documented as of this encounter Last Filed Vital Signs Vital Sign Reading Time Taken Comments Blood Pressure 130/70 09/04/2025 4:00 PM EDT Pulse 91 09/04/2025 4:00 PM EDT Temperature 35.8 C (96.4 F) 09/04/2025 4:00 PM EDT Respiratory Rate 14 09/04/2025 4:00 PM EDT Oxygen Saturation 100% 09/04/2025 4:00 PM EDT Inhaled Oxygen Concentration - - Weight 73 kg (161 lb) 09/04/2025 4:00 PM EDT Height - - Body Mass Index 30.42 05/27/2025 10:19 AM EDT documented in this encounter Progress Notes * La Walton CNM - 09/04/2025 3:45 PM EDT Subjective Patient ID: Chelsea Durand is a 35 y.o. female who presents for followup Started on estradiol patch and oral progesterone for POI, [facility]. Had significant side effects with patch, labile mood, patch site reaction, stopped medications. Chromosomal analysis and fragile X testing ordered, needs to be collected. She will do this today. LMP 08/06/2025. Had positive home test while out of state, negative serum hcg (4). Diagnosed with influenza. Feels better in this regard, still notes fatigue. Denies vasomotor symptoms. Review of Systems Objective BP 130/70 (BP Location: Left arm, Patient Position: Sitting, BP Cuff Size: Adult) Pulse 91 Temp96.4 ??F (35.8 ??C) (Oral) Resp 14 Wt 161 lb (73 kg) LMP 08/06/2025 SpO2 100% BMI 30.42 kg/m?? Physical Exam Constitutional: Appearance: Normal appearance. Neurological: Mental Status: She is alert. Psychiatric: Mood and Affect: Mood normal. Behavior: Behavior normal. Assessment/Plan Diagnoses and all orders for this visit: Primary ovarian insufficiency Will get karyotype and fragile X testing today and contact with results. Discussed trial of estradiol gel with progesterone pill or progestin IUD. She is understandably nervous to try this. Will refer to [facility]. Anderson at [facility] if he is available to consult. If not, will referto endocrinology to see if other treatment options available. documented in this encounter Plan of Treatment Scheduled Referrals Name Type Priority Associated Diagnoses Orde r Schedule Referral to Obstetrics / Gynecology Outpatient Referral Routine Primary ovarian insufficiency Expected: 09/04/2025 (Approximate), Expires: 09/04/2026 documented as of this encounter Visit Diagnoses Diagnosis Primary ovarian insufficiency- Primary documented in this encounter Additional Health Concerns Assessment Noted Time PHQ-9 Depression Total Score: 22 025 9:11 AM EDT documented as of this encounter Care Teams General Internal Medicine Physician Relationship Specialty Start Date End Date Alla Knight MD [address] [place] [phone] PCP - General Family Medicine 05/21/25 documented as of this encounter
--- OUTSIDE RECORDS SUMMARY | 2025-09-09 13:20 | XMS_ITS | Encounter Summary ---
Author Organization [employer] Address [address] [place] [address] Care Team Providers Care Pre Press Proofer Name Role Phone Alla Knight MD Primary Care Provider [phone] Encounter Details Date Type Department Care Team (Latest Contact Info) Description 09/04/2025 Travel Social History Tobacco Use Types Packs/Day [...] as of this encounter Plan of Treatment Not on file documented as of this encounter Visit Diagnoses Not on filedocumented in this encounter Additional Health Concerns Assessment Noted Time PHQ-9 Depression Total Score: 22 025 9:11 AM EDT documented as of this encounter Care Teams Pre Press Proofer Relationship Specialty Start Date End Date Alla Knight MD [address] [place] [phone] PCP - General Family Medicine 05/21/25 documented as of this encounter
--- OUTSIDE RECORDS SUMMARY | 2025-09-09 13:20 | XMS_ITS | Clinical Summary ---
Author Organization [employer] Address [address] [place] [address] Care Team Providers Care Flag Maker Name Role Phone Alla Knight MD Primary Care Provider [phone] Allergies No known active allergies Medications clonazePAM (KlonoPIN) 0.5 MG tablet Take 0.5 mg by mouth 2 times daily. Active sertraline (Zoloft) 25 MG tablet Take 2 tablets by mouth Once per day. 5 Active estradiol (Climara) 0.1 MG/24HR Place 1 patch on the skin 1 (one) time per week. 4 patch 2 5 025 Discontinued progesterone (Prometrium) 200 MG capsule 1 tablet daily for 12 days, starting on the first of the month 30 capsule 2 5 025 Discontinued Active Problems Problem Noted [...] Encounters Date Type Department Care Team Description 09/04/2025 3:45 PM EDT Office Visit [address] [address] La Walton CNM Primary ovarian insufficiency (Primary Dx) 09/04/2025 Travel 09/03/2025 Travel 09/03/[address] [address] La Walton CNM chart prep 08/22/[address] [address] La Walton CNM Status Check 08/21/2025 Orders Only [address] [address] La Walton CNM Abnormal uterine bleeding (AUB) (Primary Dx); Irregular menses 08/07/2025 Results Follow-Up [facility] [address] [place] [address] Colleen Roth MD BI US Breast Limited Bilateral 07/31/2025 Orders Only [facility] [address] [place] [address] Colleen Roth MD 07/23/2025 Telephone [facility] [address] [place] [address] Alla Knight MD TC- telehealth appt 07/23/2025 Travel 07/22/2025 Telephone [facility] [address] [place] [address] Alla Knight MD 07/02/2025 10:00 AM EDT Office Visit [address] [address] La Walton CNM Primary ovarian insufficiency (Primary Dx); Irregular menses 07/02/2025 Results Follow-Up [address] [address] La Walton CNM hCG, Total, Quantitative 07/02/2025 Travel 07/01/2025 Telephone [facility] [address] [place] [address] La Walton CNM chart prep 06/25/2025 Telephone [facility] [address] [place] [address] La Walton CNM chart prep 06/25/2025 Travel 06/18/2025 8:45 AM EDT Telemedicine [facility] [address] [place] [address] Alla Knight MD Depression, unspecified depression type (Primary Dx); Anxiety 06/18/2025 Travel 06/17/2025 Travel from Last 3 Months Family History Medical [...] with others, in a hotel, in a usp, living outside on the street, on a [...] (161 lb) 09/04/2025 4:00 PM EDT Height 154.9 cm (5' 1 ) 05/27/2025 10:19 AM EDT Body Mass Index 30.42 05/27/2025 10:19 AM EDT Plan of Treatment Health Maintenance Due Date Last Done Comments [...] Family Planning (PISQ) 07/02/2026 07/02/2025 Tobacco Screening 09/04/2026 09/04/2025 Cervical Cancer Screening 05/27/2030 HPV/Cotest 05/27/2030 05/27/2025 [...] Procedure Name Priority Date/Time Associated Diagnosis Comments BI US BREAST LIMITED BILATERAL Routine 07/31/2025 12:31 PM EDT BI MAMMOGRAM DIAGNOSTIC TOMOSYNTHESIS BILATERAL Routine 07/31/2025 12:30 PM EDT Pain of both breasts HCG, TOTAL, QN Routine 07/02/2025 11:08 AM [...] 06/11/2025 9:12 AM EDT Class 1 obesity HPV DNA, LOW/HIGH RISK Routine 05/27/2025 11:02 AM EDT Cervical cancer screening PAP SMEAR Routine 05/27/2025 11:02 AM EDT Cervical cancer screening from Last 3 Months or Most Recently Relevant to Health Maintenance Results * BI US Breast Limited Bilateral (07/31/2025 12:31 PM EDT) Anatomical Region Laterality Modality Breast Bilateral Ultrasound 07/31/2025 12:3 1 PM EDT Narrative 07/31/2025 2:40 PM EDT [address] [place] [address] Ultrasound Report Signed Patient: Chelsea Durand MR#: [id number] 60 : 1990 Acct:[id number] Age/Sex: 35 / F ADM Date: 07/31/25 Loc: HO.MAMMO Attending Dr: Colleen Roth MD Ordering Physician: Colleen Roth MD Date of Service: 07/31/25 Procedure(s): US breast BI limited mamm only Accession Number(s): [id number] cc: Colleen Roth MD Reason for Exam: BILAT BR PAIN EXAMINATION: MM DIAGNOSTIC DIGITAL BREAST TOMOSYNTHESIS, BILATERAL Bilateral Limited breast ultrasound. CLINICAL INFORMATION: Bilateral breast pain. COMPARISON: Mammography: Baseline. TECHNIQUE: Digital breast mammography with tomosynthesis is performed in both the craniocaudal and mediolateral oblique views along with computer-aided detection (CAD). FINDINGS: There are scattered areas of fibroglandular density (ACR BI-RADS breast composition Category b). Left: Focal asymmetry upper outer breast posterior depth. Focal asymmetry upper outer breast middle depth. No suspicious calcifications or other abnormal findings. Targeted color Doppler ultrasound demonstrates a hypoechoic oval circumscribed solid mass at 10:00 11 cm from the nipple measuring 7 x 10 x 3 mm not identified correlate for the focal asymmetry in the upper central breast posterior depth. Targeted color Doppler ultrasound otherwise scanning from 10 2:00 demonstrates normal fibroglandular breast tissue. There is no other sonographic correlate. Right: Circumscribed oval mass central outer breast middle to posterior depth. No suspicious calcifications or other abnormal findings. Targeted color Doppler ultrasound demonstrates a simple cyst at 9:00 8 cm from the nipple measuring 4 x 4 x 3 mm which correlates with the circumscribed oval mass in the central outer breast on mammography. Results are provided to the patient at time of visit by the technologist. US/US breast BI limited mamm only IMPRESSION: Left: Focal asymmetry in the upper central breast posterior depth and upper central breast middle depth without definite sonographic correlates. Recommend six-month follow-up mammography for further evaluation of stability. Hypoechoic circumscribed oval mass at 10:00 11 cm from the nipple. Recommend 6 month follow-up ultrasound for further evaluation of stability. Right: Simple cyst on ultrasound. Benign. ASSESSMENT: BI-RADS BI-RADS 3 - Probably benign finding(s) - 6 month follow-up suggested RECOMMENDATION: 6 Month F/U mammogram and ultrasound of the left breast This patient's information was entered into a reminder system with a target due date for their next mammogram. Electronically signed by: Ashanti Yousif DO 07/31/2025 02:38 PM EDT Dictated By: Ashanti Yousif DO Signed By: <Electronically signed by Ashanti Yousif DO in OV> 07/31/25 1438 DD/ 1231 TD/TT: 07/31/25 1333 Nail Setter: Procedure Note Donotuseinterpreter, Image - 07/31/20[facility] [address] [place], [place] [address] Ultrasound Report Signed Patient: Elizabet DurandYoselin#: [id number] 60 : 1990Acct:[id number] Age/Sex: 35 / FADM Date: 07/31/25 Loc: HO.MAMMO Attending Dr: Colleen Roth MD Ordering Physician: Colleen Roth MD Date of Service: 07/31/25 Procedure(s): US breast BI limited mamm only Accession Number(s): [id number] cc: Colleen Roth MD Reason for Exam: BILAT BR PAIN EXAMINATION: MM DIAGNOSTIC DIGITAL BREAST TOMOSYNTHESIS, BILATERAL Bilateral Limited breast ultrasound. CLINICAL INFORMATION: Bilateral breast pain. COMPARISON: Mammography: Baseline. TECHNIQUE: Digital breast mammography with tomosynthesis is performed in both the craniocaudal and mediolateral oblique views along with computer-aided detection (CAD). FINDINGS: There are scattered areas of fibroglandular density (ACR BI-RADS breast composition Category b). Left: Focal asymmetry upper outer breast posterior depth. Focal asymmetry upper outer breast middle depth. No suspicious calcifications or other abnormal findings. Targeted color Doppler ultrasound demonstrates a hypoechoic oval circumscribed solid mass at 10:00 11 cm from the nipple measuring 7 x 10 x 3 mm not identified correlate for the focal asymmetry in the upper central breast posterior depth. Targeted color Doppler ultrasound otherwise scanning from 10 2:00 demonstrates normal fibroglandular breast tissue. There is no other sonographic correlate. Right: Circumscribed oval mass central outer breast middle to posterior depth. No suspicious calcifications or other abnormal findings. Targeted color Doppler ultrasound demonstrates a simple cyst at 9:00 8 cm from the nipple measuring 4 x 4 x 3 mm which correlates with the circumscribed oval mass in the central outer breast on mammography. Results are provided to the patient at time of visit by the technologist. US/US breast BI limited mamm only IMPRESSION: Left: Focal asymmetry in the upper central breast posterior depth and upper central breast middle depth without definite sonographic correlates. Recommend six-month follow-up mammography for further evaluation of stability. Hypoechoic circumscribed oval mass at 10:00 11 cm from the nipple. Recommend 6 month follow-up ultrasound for further evaluation of stability. Right: Simple cyst on ultrasound. Benign. ASSESSMENT: BI-RADS BI-RADS 3 - Probably benign finding(s) - 6 month follow-up suggested RECOMMENDATION: 6 Month F/U mammogram and ultrasound of the left breast This patient's information was entered into a reminder system with a target due date for their next mammogram. Electronically signed by: Ashanti Yousif DO 07/31/2025 02:38 PM EDT Dictated By: Ashanti Yousif DO Signed By: <Electronically signed by Ashanti Yousif DO in OV> 07/31/25 1438 DD/ 1231 TD/TT: 07/31/25 1333 Nail Setter: us Colleen Roth MD IMG US PROCEDURES Final Resul t * BI Mammogram Diagnostic Tomosynthesis Bilateral (07/31/2025 12:30 PM EDT) Anatomical Region Laterality Modality Breast Bilateral Mammography 07/31/2025 12:3 0 PM EDT Narrative 07/31/2025 2:41 PM EDT [address] [place] [address] Mammography Report Signed Patient: Chelsea Durand MR#: [id number] 60 : 1990 Acct:[id number] Age/Sex: 35 / F ADM Date: 07/31/25 Loc: HO.MAMMO Attending Dr: Colleen Roth MD Ordering Physician: Colleen Roth MD Results: 3.6MP robably Benign Finding - Short 6 M F/U Suggested Date of Service: 07/31/25 Follow Up: 6 Month F/U Procedure(s): MM tomosynthesis diagnostic BI Accession Number(s): [id number] cc: Colleen Roth MD EXAMINATION: MM DIAGNOSTIC DIGITAL BREAST TOMOSYNTHESIS, BILATERAL Bilateral Limited breast ultrasound. CLINICAL INFORMATION: Bilateral breast pain. COMPARISON: Mammography: Baseline. TECHNIQUE: Digital breast mammography with tomosynthesis is performed in both the craniocaudal and mediolateral oblique views along with computer-aided detection (CAD). FINDINGS: There are scattered areas of fibroglandular density (ACR BI-RADS breast composition Category b). Left: Focal asymmetry upper outer breast posterior depth. Focal asymmetry upper outer breast middle depth. No suspicious calcifications or other abnormal findings. Targeted color Doppler ultrasound demonstrates a hypoechoic oval circumscribed solid mass at 10:00 11 cm from the nipple measuring 7 x 10 x 3 mm not identified correlate for the focal asymmetry in the upper central breast posterior depth. Targeted color Doppler ultrasound otherwise scanning from 10 2:00 demonstrates normal fibroglandular breast tissue. There is no other sonographic correlate. Right: Circumscribed oval mass central outer breast middle to posterior depth. No suspicious calcifications or other abnormal findings. Targeted color Doppler ultrasound demonstrates a simple cyst at 9:00 8 cm from the nipple measuring 4 x 4 x 3 mm which correlates with the circumscribed oval mass in the central outer breast on mammography. Results are provided to the patient at time of visit by the technologist. MM/MM tomosynthesis diagnostic BI IMPRESSION: Left: Focal asymmetry in the upper central breast posterior depth and upper central breast middle depth without definite sonographic correlates. Recommend six-month follow-up mammography for further evaluation of stability. Hypoechoic circumscribed oval mass at 10:00 11 cm from the nipple. Recommend 6 month follow-up ultrasound for further evaluation of stability. Right: Simple cyst on ultrasound. Benign. ASSESSMENT: BI-RADS BI-RADS 3 - Probably benign finding(s) - 6 month follow-up suggested RECOMMENDATION: 6 Month F/U mammogram and ultrasound of the left breast This patient's information was entered into a reminder system with a target due date for their next mammogram. Electronically signed by: Ashanti Yousif DO 07/31/2025 02:38 PM EDT Dictated By: Ashanti Yousif DO Signed By: <Electronically signed by Ashanti Yousif DO in OV> 07/31/25 1438 DD/ 1230 TD/TT: 07/31/25 1255 Nail Setter: Procedure Note Donotuseinterpreter, Image - 07/31/2025 [facility] [address] [place] [address] [place] [address] Mammography Report Signed Patient: Rodolfo Durand#: [id number] 60 : 1990Acct:[id number] Age/Sex: 35 / FADM Date: 07/31/25 Loc: HO.MAMMO Attending Dr: Colleen Roth MD Ordering Physician: Colleen Roth MDResults: 3.6MP robably Benign Finding - Short 6 M F/U Suggested Date of Service: 07/31/25Follow Up: 6 Month F/U Procedure(s): MM tomosynthesis diagnostic BI Accession Number(s): [id number] cc: Colleen Roth MD EXAMINATION: MM DIAGNOSTIC DIGITAL BREAST TOMOSYNTHESIS, BILATERAL Bilateral Limited breast ultrasound. CLINICAL INFORMATION: Bilateral breast pain. COMPARISON: Mammography: Baseline. TECHNIQUE: Digital breast mammography with tomosynthesis is performed in both the craniocaudal and mediolateral oblique views along with computer-aided detection (CAD). FINDINGS: There are scattered areas of fibroglandular density (ACR BI-RADS breast composition Category b). Left: Focal asymmetry upper outer breast posterior depth. Focal asymmetry upper outer breast middle depth. No suspicious calcifications or other abnormal findings. Targeted color Doppler ultrasound demonstrates a hypoechoic oval circumscribed solid mass at 10:00 11 cm from the nipple measuring 7 x 10 x 3 mm not identified correlate for the focal asymmetry in the upper central breast posterior depth. Targeted color Doppler ultrasound otherwise scanning from 10 2:00 demonstrates normal fibroglandular breast tissue. There is no other sonographic correlate. Right: Circumscribed oval mass central outer breast middle to posterior depth. No suspicious calcifications or other abnormal findings. Targeted color Doppler ultrasound demonstrates a simple cyst at 9:00 8 cm from the nipple measuring 4 x 4 x 3 mm which correlates with the circumscribed oval mass in the central outer breast on mammography. Results are provided to the patient at time of visit by the technologist. MM/MM tomosynthesis diagnostic BI IMPRESSION: Left: Focal asymmetry in the upper central breast posterior depth and upper central breast middle depth without definite sonographic correlates. Recommend six-month follow-up mammography for further evaluation of stability. Hypoechoic circumscribed oval mass at 10:00 11 cm from the nipple. Recommend 6 month follow-up ultrasound for further evaluation of stability. Right: Simple cyst on ultrasound. Benign. ASSESSMENT: BI-RADS BI-RADS 3 - Probably benign finding(s) - 6 month follow-up suggested RECOMMENDATION: 6 Month F/U mammogram and ultrasound of the left breast This patient's information was entered into a reminder system with a target due date for their next mammogram. Electronically signed by: Ashanti Yousif DO 07/31/2025 02:38 PM EDT RP Dictated By: Ashanti Yousif DO Signed By: <Electronically signed by Ashanti Yousif DO in OV> 07/31/25 1438 DD/ 1230 TD/TT: 07/31/25 1255 Nail Setter: us Colleen Roth MD IMG BI PROCEDURES Final Resul t * hCG, Total, Quantitative (07/02/2025 11:08 AM EDT) Only the most recent of2 resultswithin the time period is included. HCG Quantitative 4 mIU/mL [facility] Comment:Weeks post LMP Appro ximate hCG(Last Menstrual Period) Range (mIU/ml)3 - 4 weeks 9 - 1304 - 5 weeks 75 - 2,6005 - 6 weeks 850 - 20,8006 - 7 weeks 4000 - 100,2007 - 12 weeks 11,500 - 289,39534 - 16 weeks 18,300 - 137,20895 - 29 weeks (2nd trimester) 1,400 - 53,42741 - 41 weeks (3rd trimester) 940 - [...] 11:08 AM EDT 07/02/2025 1:36 PM EDT us La Walton CNM LAB BLOOD ORDERABLES Maria Fernanda l Result [facility] [address] [place] [phone] * POCT Urine (07/02/2025 10:59 AM EDT) Preg Test, Ur Negative Negative, Indeterminate, None Detected, Invalid, Specimen unsatisfactory for evaluation, Weakly Positive, 2+ QC Media Lot # [id number] Lot# Expiration Date [id number] Urine 07/02/2025 10:5 9 AM EDT La Walton CN POINT OF CARE TEST ENTER/ EDIT ORDERABLES Final Result * Estradiol (06/20/2025 9:20 AM EDT) Only the most recent of2 resultswithin the time period is included. Estradiol Ultra Sensitive 6 pg/mL [facility] Comment:Female Reference Ran ges for Estradiol, Ultrasensitive (pg/mL): Follicular Phase: 39-375 Luteal Phase: 48-440 Postmenopausal Phase: < or = 10This test was developed and its analytical performancecharacteristics have been determined by [employer].It has not been cleared or approved by the FDA. This assayhas been validated pursuant to the CLIA regulations and isused for clinical purposes.THIS TEST WAS PERFORMED AT:[employer] [id number] [facility] [address]QBFWRANITHA MABRY MD,PHD,NIMCO Blood Venous blood specimen / Unknown 06/20/2025 9:20 AM EDT 06/20/2025 1:50 PM EDT Colleen Roth MD LAB BLOOD ORDERABLES Final Re sult [facility] [address] [place] [address] [phone] * Testosterone, Free (Dialysis) And Total, MS (06/20/2025 9:20 AM EDT) Testosterone, Total 23 2 - 45 ng/dL [facility] Comment:For additional infor hyacinth, please refer tohttp://education.[employer]/faq/UfequJxrbfgwrfuzcISFKJEPTL890(This link is being provided for informational/educational purposes only.)This test was developed and its analytical performancecharacteristics have been determined by [employer]. It hasnot been cleared or approved by the U.S. Food and DrugAdministration. This assay has been validated pursuantto the CLIA regulations and is used for clinicalpurposes. Testosterone, Free 3.8 0.1 - 6.4 pg/mL [facility] Comment:This test was develo ped and its analytical performancecharacteristics have been determined by [employer] [place], [place]. It hasnot been cleared or approved by the U.S. Food and DrugAdministration. This assay has been validated pursuantto the CLIA regulations and is used for clinicalpurposes.THIS TEST WAS PERFORMED AT:[employer] [id number] [place] [address]TPBRCSLJANAE LANIER MD,PHD Blood Venous blood specimen / Unknown 06/20/2025 9:20 AM EDT 06/20/2025 1:50 PM EDT Colleen Roth MD LAB BLOOD ORDERABLES Final Re sult [facility] [address] [place] [phone] * LH (06/20/2025 9:20 AM EDT) Lutenizing Hormone 61.7 mIU/mL [facility] Comment:Reference Range Foll icular Phase 1.9-12.5 Mid-Cycle Peak 8.7-76.3 Luteal Phase 0.5-16.9 Postmenopausal 10.0-54.7THIS TEST WAS PERFORMED AT:[employer] [address] [address]NAUCGMIGUELINA JARA MD Blood Venous blood specimen / Unknown 06/20/2025 9:20 AM EDT 06/20/2025 1:50 PM EDT Colleen Roth MD LAB BLOOD ORDERABLES Final Re sult Performing Organization Address [facility] Co de Phone Number [facility] [address] [place] [phone] * FSH (06/20/2025 9:20 AM EDT) Only the most recent of2 resultswithin the time period is included. Follicle Stimulating Hormone 78.8 mIU/mL [facility] Comment:Reference Range Foll icular Phase 2.5-10.2 Mid-cycle Peak 3.1-17.7 Luteal Phase 1.5- 9.1 Postmenopausal 23.0-116.3THIS TEST WAS PERFORMED AT:[facility] [place] [phone] JARA MD Blood Venous blood specimen / Unknown 06/20/2025 9:20 AM EDT 06/20/2025 1:50 PM EDT us Colleen Roth MD LAB BLOOD ORDERABLES Final Re sult Performing Organization Address [facility] Co de Phone Number [facility] [address] [place] [phone] * US Pelvis Transvaginal (06/17/2025 3:39 PM EDT) Anatomical Region Laterality Modality Pelvis Ultrasound 06/17/2025 3:39 PM EDT Narrative 06/17/2025 4:16 PM EDT [address] [address] Ultrasound Report Signed Patient: Chelsea Durand MR#: [id number] 60 : 1990 Acct:[id number] Age/Sex: 35 / F ADM Date: 06/17/25 Loc: HO.US Attending Dr: Colleen Roth MD Ordering Physician: Colleen Roth MD Date of Service: 06/17/25 Procedure(s): US pelvic and transvaginal Accession Number(s): [id number] cc: Alla Knight MD; Colleen Roth MD [...] Pepito Valadez MD 06/17/2025 04:13 PM EDT RP Dictated By: Pepito Valadez MD Signed By: <Electronically signed by Pepito Valadez MD in OV> 06/17/25 1613 DD/ 1539 TD/TT: 06/17/25 1552 Nail Setter: Procedure Note Donotuseinterpreter, Image - 06/17/2025 [place] [address] Ultrasound Report Signed Patient: Rodolfo Durand#: [id number] 60 : 1990Acct:[id number] Age/Sex: 35 / FADM Date: 06/17/25 Loc: HO.US Attending Dr: Colleen Roth MD Ordering Physician: Colleen Roth MD Date of Service: 06/17/25 Procedure(s): US pelvic and transvaginal Accession Number(s): [id number] cc: Alla Knight MD; Colleen Roth MD [...] Pepito Valadez MD 06/17/2025 04:13 PM EDT RP Dictated By: Pepito Valadez MD Signed By: <Electronically signed by Pepito Valadez MD in OV> 06/17/25 1613 DD/ 1539 TD/TT: 06/17/25 1552 Nail Setter: us Colleen Roth MD IMG US PROCEDURES Final Resul t * TSH W/Reflex to FT4 (06/11/2025 9:12 AM EDT) Pathologist [facility] TSH reflex Free T4 1.10 0.32 - 4.0 uIU/mL [facility] Blood Venous blood specimen / Unknown 06/11/2025 9:12 AM EDT 06/11/2025 10:07 AM EDT us Colleen Roth MD LAB BLOOD ORDERABLES Final Re sult [facility] [address] [place] [phone] * (ABNORMAL) CBC auto differential (06/11/2025 9:12 AM EDT) White Blood Count 6.0 4.8 - 10.8 X10*3/uL [facility] Red Blood Count 4.12(L) 4.20 - 5.50 X10*6/uL [facility] Hemoglobin 13.4 12.0 - 16.0 g/dl [facility] Hematocrit 39.5 37.0 - 47.0 % [facility] Mean Corpuscular Volume 95.9 80.0 - 98.0 fL [facility] Mean Corpuscular Hemoglobin 32.5 27.0 - 33.0 pg [facility] Mean Corpuscular HGB Conc 33.9 31.0 - 35.0 g/dl [facility] Red Cell Distribution Width 12.4 11.0 - 16.0 % [facility] Platelet Count 302 160 - 400 X10*3/uL [facility] Mean Platelet Volume 9.7 9.4 - 12.3 fL [facility] Neutrophils Percent Auto 54.6 45 - 73 % [facility] Imm Gran Pct Auto 0.3 0.0 - 0.4 % [facility] Lymphocytes Percent Auto 35.6 20 - 40 % [facility] Monocytes Percent Auto 7.3 2 - 11 % [facility] Eosinophils Percent Auto 1.7 0 - 4 % [facility] Basophils Percent Auto 0.5 0 - 2 % [facility] NRBC Pct Auto 0.0 0.0 - 0.2 /100WBC [facility] Neutrophils Absolute Auto 3.3 2.0 - 8.3 x10*3/uL [facility] Imm Gran Abs Auto 0.02 0.00 - 0.03 X10*3/uL [facility] Lymphocytes Absolute Auto 2.2 1.2 - 4.9 X10*3/uL [facility] Monocytes Absolute Auto 0.4 0.1 - 1.2 X10*3/uL [facility] Eosinophils Absolute Auto 0.1 0.0 - 0.4 X10*3/uL [facility] Basophils Absolute Auto 0.0 0.0 - 0.2 X10*3/uL [facility] NRBC Abs Auto 0.000 0.0 - 0.012 X10*3/uL [facility] Blood Venous blood specimen / Unknown 06/11/2025 9:12 AM EDT 06/11/2025 10:07 AM EDT Colleen Roth MD LAB BLOOD ORDERABLES Final Re sult Performing Organization Address [facility] [place]/ZIP Co de Phone Number [facility] [address] [place] [phone] * Hepatitis C Antibody with Reflex to HCV, RNA, Quantitative, Real-Time PCR (06/11/2025 9:12 AM EDT) Hepatitis C Antibody Nonreactive Nonreactive [facility] Comment:Antibodies to HCV no t detected; does not exclude early acuteHCV infection. Blood Venous blood specimen / Unknown 06/11/2025 9:12 AM EDT 06/11/2025 10:07 AM EDT Colleen Roth MD LAB BLOOD ORDERABLES Final Re sult Performing Organization Address [facility] [place]/ZIP Co de Phone Number [facility] [address] [place] [phone] * Celiac Disease Comprehensive Panel (06/11/2025 9:12 AM EDT) Immunoglobulin A, Qn, Serum 247 47 - 310 mg/dL [facility] Comment:THIS TEST WAS PERFOR MED AT:[facility] [place] [phone] JARA MD Transglutaminase IgA <1.0 U/mL [facility] Comment:Value Interpretation ----- <15.0 Antibody not detected> or = 15.0 Antibody detected Interpretation SEE NOTE [facility] Comment:No serological evide nce of celiac [...] ORDERABLES Final Re sult Performing Organization Address [facility] de Phone Number [facility] [address] [place] [phone] * (ABNORMAL) Anti-Mullerian Hormone (AMH), Female (06/11/2025 9:12 AM EDT) Anti-Mullerian Hormone (AMH), Female 0.00(A) 0.18 - 5.68 ng/mL [facility] Comment:THIS TEST WAS PERFOR MED AT:[email or web address] [id number] [place] [phone] MABRY MD,PHD,NIMCO Blood Venous blood specimen / Unknown 06/11/2025 9:12 AM EDT 06/11/2025 10:07 AM EDT Colleen Roth MD LAB BLOOD ORDERABLES Final Re sult Performing Organization Address [facility] [place]/[facility] Co de Phone Number [facility] [address] [place] [phone] * Prolactin (06/11/2025 9:12 AM EDT) Prolactin 9.0 ng/mL [facility] Comment:Reference Range Fema les Non- 3.0-30.0 10.0-209.0 Postmenopausal 2.0-20.0THIS TEST WAS PERFORMED AT:[employer] [address] [phone] JARA MD Blood Venous blood specimen / Unknown 06/11/2025 9:12 AM EDT 06/11/2025 10:07 AM EDT Colleen Roth MD LAB BLOOD ORDERABLES Final Re sult Performing Organization Address [facility] [place]/[facility] Co de Phone Number [facility] [address] [place] [phone] * RPR (Monitor) with Reflex to??Titer (06/11/2025 9:12 AM EDT) RPR (Monitor) w/Refl Titer NON-REACTI VE NON-REACT EARL [facility] Comment:THIS TEST WAS PERFOR MED AT:[facility] [place] [phone] JARA MD Rapid Plasma Reagin Ab Titer TNP [facility] Blood Venous blood specimen / Unknown 06/11/2025 9:12 AM EDT 06/11/2025 10:07 AM EDT Colleen Roth MD LAB BLOOD ORDERABLES Final Re sult Performing Organization Address [facility] [place]/[facility] Co de Phone Number [facility] [address] [place] [phone] * HIV-1/2 Antigen and Antibodies, Fourth Generation, with Reflexes (06/11/2025 9:12 AM EDT) HIV AB/AG Nonreactive Nonreactive [facility] Comment:HIV-1 p24 Ag and/or HIV-1/HIV-2 Ab not detected.A test result that is nonreactive does not exclude thepossibility of exposure to or infection with HIV-1 and/orHIV-2. Nonreactive results in this assay for individualswith prior exposure to HIV-1 and/or HIV-2 may be due toantigen and antibody levels that are below the limit ofdetection of this assay.The [employer] HIV Ag/Ab Combo assay result andsupplemental assay results should be interpreted inconjunction with the patient's clinical presentation,history and other laboratory results. If the results areinconsistent with clinical evidence, additional testing issuggested to confirm the result. Blood Venous blood specimen / Unknown 06/11/2025 9:12 AM EDT 06/11/2025 10:07 AM EDT us Colleen Roth MD LAB BLOOD ORDERABLES Final Re sult Performing Organization Address [facility] [place]/[facility] de Phone Number [facility] [address] [place] [phone] * (ABNORMAL) Lipid Panel, Standard (06/11/2025 9:12 AM EDT) Triglycerides 131 <150 mg/dL [facility] Comment:Desirable Triglyceri de: less than 150 mg/dLBorderline High Triglyceride 150-199 mg/dLHigh Triglyceride: 200-499 mg/dLVery High Triglyceride: greater than or equal to 5OO mg/dL Cholesterol 200(H) <200 mg/dL [facility] Comment:Desirable Cholestero l: less than 200 mg/dLBorderline High Cholesterol: 200-239 mg/dLHigh Cholesterol: greater than 239 mg/dL LDL Cholesterol Calculated 129(H) <100 mg/dL [facility] Comment:Desirable LDL: less than 100 mg/dLNear Optimal/Above Optimal LDL: 110- 129 mg/dLBorderline High LDL: 130-159 mg/dLHigh LDL: 160-189 mg/dLVery High LDL: greater than or equal to 190 mg/dL HDL Cholesterol 45 >40 mg/dL [facility] Comment:Desirable HDL: great er than 40 mg/dL Note: This HDL assay may give artificially low results in patients with liver disease. Blood Venous blood specimen / Unknown 06/11/2025 9:12 AM EDT 06/11/2025 10:07 AM EDT us Colleen Roth MD LAB BLOOD ORDERABLES Final Re sult Performing Organization Address [facility] [place]/[facility] Co de Phone Number [facility] [address] [place] [phone] * (ABNORMAL) Comprehensive Metabolic Panel (06/11/2025 9:12 AM EDT) Sodium 143 135 - 145 mmol/L [facility] Potassium 3.8 3.3 - 5.1 mmol/L [facility] Chloride 111(H) 96 - 108 mmol/L [facility] Carbon Dioxide 25 22 - 29 mmol/L [facility] Anion Gap 11(L) 12 - 20 [facility] Urea Nitrogen (BUN) 20(H) 9 - 16 mg/dL [facility] Creatinine, Serum 0.82 0.5 - 1.4 mg/dL [facility] Estimated Glomerular Filt Rate >60 [facility] Comment:Chronic Kidney Disea se: Estimated GFR < 60 mL/min/1.79s2Yhxgyg Kidney Disease: Estimated GFR < 15 mL/min/1.73m2 Glucose 100 60 - 115 mg/dL [facility] Calcium 8.8 8.4 - 10.2 mg/dL [facility] Bilirubin, Total 0.2 0.0 - 1.0 mg/dL [facility] Aspartate Amino Transferase 25 5 - 31 U/L [facility] Alanine Aminotransferase 26 0 - 31 U/L [facility] Total Protein 7.2 6.5 - 8.0 g/dL [facility] Albumin Level 4.5 3.5 - 5.0 g/dL [facility] Alkaline Phosphatase 66 39 - 117 U/L [facility] Blood Venous blood specimen / Unknown 06/11/2025 9:12 AM EDT 06/11/2025 10:07 AM EDT us Colleen Roth MD LAB BLOOD ORDERABLES Final Re sult [facility] [address], [place] [phone] * HPV High Risk with Reflex to Subtypes (05/27/2025 11:02 AM EDT) HPV High Risk Negative Negative [facility] HPV Genotype 16 Negative Negative [facility] HPV Genotype 18 Negative Negative [facility] Comment:HPV testing performe d at [facility] (CLIA#[id number]), [address] [place] [phone].Testing for HPV was performed using the [employer] [...] MD LAB BLOOD ORDERABLES Final Re sult [facility] [address] [place] [phone] * Pap Smear (05/27/2025 11:02 AM EDT) Swab 05/27/2025 11:0 2 AM EDT 05/28/2025 8:25 AM EDT [facility] - 06/02/2025 3:02 PM EDT ----- ------- Name: Chelsea Durand Age/Sex: 35/F : 1990 Unit#: [id number] Attend Dr: Colleen Roth MD Re05/27/25 Status: DEP REF Location: [facility] Disch: ----- ------- SPEC : [id number] RECD: 05/28/25 STATUS: JENNIFER LUND NUM: [id number] JOSSIE: 05/27/25 [facility] DR: Colleen Roth MD ENTERED: 05/28/25 SP TYPE: Pap Smr OTHR DR: ORDERED: Pap Smear Interpretation Satisfactory for [...] and HPV testing will be performed at [facility] (CLIA #[id number]), [address] [place] [address]. Testing for HPV was performed using the [...] detected. All professional services are performed by [facility] ([address] [place] [address], [place] [address]; ; CLIA #[id number]). The PAP Test is a screening procedure with the inherent possibility of both false negative and false positive results. Results should be interpreted in the context of historic and current clinical findings. Reliability of the PAP Test is enhanced by performing the test on a regular repetitive basis. CONTINUED ON NEXT PAGE ----- ------- Name: Chelsea Durand Age/Sex: 35/F : 1990 Unit#: [id number] Attend Dr: Colleen Roth MD Re05/27/25 Status: [facility] REF Location: [facility].CHCLNP Disch: ----- ------- SPEC : [id number] RECD: 05/28/25 STATUS: JENNIFER LUND NUM: [id number] JOSSIE: 05/27/25-1101 [facility] DR: Colleen Roth MD ENTERED: 05/28/25 SP TYPE: Pap Leslie MONTEZ DR: ORDERED: Pap Smear ----- ------- Signed (signature on file) CHRISSIE Monzon (ASCP) 06/02/25 1502 ----- ------- END OF REPORT Colleen Roth MD LAB CYTOLOGY ORDERABLES Final Result [facility] [address] [place] [phone] from Last 3 Months or Most Recently Relevant to Health Maintenance Insurance Incont C3 Care Teams Flag Maker Relationship Specialty Start Date End Date Alla Knight MD [address] [place] [address] PCP - General Family Medicine 05/21/25
== END 2025-09-09 11:03 | disposition home or self-care (01) ==
LOC: HO.HHCL 11:02
PROVIDERS: PCP Student in an Organized Health Care Education/Training Program; Visit Provider Advanced Practice Midwife
DX: N92.6 Irregular menstruation, unspecified (principal)
CPT/HCPCS: 36415; 84702